=== PATIENT | female | born 1980 | race Caucasian/White ===

== ENCOUNTER → 2017-09-12 | Outpatient (CLI) | payer BC ==
[~2017-09-12] MED LIST: FLUT1SPR5 EACH NARE; LACTCAP8 PO; PREN29TA PO
[2017-09-12 13:56] LABS: BILIRUBIN, URINE NEG (NEG); BLOOD, URINE NEG (NEG); GLUCOSE,URINE NEG (NEG); KETONE, URINE NEG (NEG); NITRITE,URINE NEG (NEG); PH, URINE 6.5 (5.0-8.5); URINE COLOR LIGHT-YELLOW (YELLW/STRAW); URINE LEUKOCYTE ESTERASE NEG (NEG)
[2017-09-12 14:00] LABS: AUTOMATED NEUTROPHIL # 3.5 TH/MM3 (1.8-7.7); BASOPHIL % 0.4 % (0.0-2.0); EOSINOPHIL # 0.2 TH/MM3 (0-0.4); EOSINOPHIL % 2.8 % (0.0-4.0); HEMATOCRIT 41.5 % (35.0-46.0); HEMOGLOBIN 13.9 GM/DL (11.6-15.3); LYMPH % 38.3 % (9.0-44.0); LYMPHOCYTE # 2.6 TH/MM3 (1.0-4.8); MEAN CELL VOLUME 89.4 FL (80.0-100.0); MEAN CORPUSCULAR HGB CONC 33.5 % (32.0-36.0); MEAN PLATELET VOLUME 9.4 FL (7.0-11.0); MONO % 6.4 % (0.0-8.0); MONOCYTE # 0.4 TH/MM3 (0-0.9); NEUT % 52.1 % (16.0-70.0); PLATELET COUNT 284 TH/MM3 (150-450); RED BLOOD COUNT 4.65 MIL/MM3 (4.00-5.30); RED CELL DISTRIBUTION WIDTH 13.3 % (11.6-17.2); WHITE BLOOD COUNT 6.7 TH/MM3 (4.0-11.0)
--- NOTE | 2017-09-13 14:21 | EKG ---
Date Performed: 09/12/2017 Time Performed: 13:04:04 PTAGE: 36 years EKG: SINUS BRADYCARDIA LOW QRS VOLTAGE IN PRECORDIAL LEADS BORDERLINE ECG NO PREVIOUS TRACING DOCTOR: Kodak Bowie Interpretating Date/Time 09/13/2017 14:20:40
== END ==
LOC: CPRE 12:46
PROVIDERS: ATTEND Obstetrics & Gynecology
DX: Z01.812 Encounter for preprocedural laboratory examination (principal); Z01.810 Encounter for preprocedural cardiovascular examination; N92.0 Excessive and frequent menstruation with regular cycle; N94.6 Dysmenorrhea, unspecified; R00.1 Bradycardia, unspecified
CPT/HCPCS: 36415; 81001; 84702; 85025; 93005

== ENCOUNTER → 2017-09-14 | Day surgery (SDC) | payer BC ==
--- NOTE | 2017-09-13 12:11 | MH ---
cc: Sonu Mitchell MD DATE OF ADMISSION: 09/14/2017 ADMITTING DIAGNOSES: 1. Menorrhagia. 2. Dysmenorrhea. HISTORY OF PRESENT ILLNESS: This is a 36-year-old white female, para 1-0-0-1 who returned for evaluation on 07/10/2017 reporting increasing menstrual flow and menstrual pain. Her cycles are lasting from 4-5 days. At first, her menses are heavy often passing large clots per vagina, bleeding through her tampons and clothing. She has had a little more dysmenorrhea. Her Pap smear was normal. Her laboratory studies were normal. Ultrasound showed a uterus that measured 6.9 cm with normal appearing ovaries. She is now admitted for surgical evaluation. PAST SURGICAL HISTORY: T and A, age 31, in 2016 for failure to progress OP and nonreassuring heart rate tracing. MEDICATIONS: Vitamins. ALLERGIES: NONE. TRANSFUSIONS: None. SOCIAL HISTORY: She is , employed at [employer]. Alcohol, tobacco and drugs are none. FAMILY HISTORY: Noncontributory. PHYSICAL EXAMINATION: This is a well-nourished, well-developed white female. VITAL SIGNS: Stable. HEENT: Normal. CHEST: Clear. HEART: Regular rate. BREASTS: Symmetrical. ABDOMEN: Benign. PELVIC: Normal external genitalia and BUS. Vagina is normal. Cervix normal. Uterus is normal size and shape. Adnexa nonpalpable. ASSESSMENT: As above. PLAN: She is now admitted for hysteroscopy and D and C. While in the office, I explained the procedures, the risks, benefits and complications and possible need for later therapies and patient would like to proceed. Sonu Mitchell MD JAW/DL , 11:48 AM , 12:10 PM
[~2017-09-14] VITALS: Ht 160 cm; Wt 68.1 kg
[~2017-09-14] MED LIST changes: +ACETAMINOPHEN 1000 MG/100 ML 100 ML IV SCH; +CHLORHEXIDINE GLUCONATE 2 % 1 PACK (2 CLOTHS) TOPICAL PRN; +DEXAMETHASONE SOD PHOS 4 MG/ML VIAL IV ONE; +DO NOT ADM ANY ANTICOAGULANT DRUGS PRN; +KETOROLAC TROMETHAMINE 30 MG/ML (IVP) VIAL IV PUSH ONE; +LACTATED RINGER'S 1000 ML IV PRN; +LIDOCAINE HCL 1% PF 5 ML SYRINGE OTHER ONE; +METOCLOPRAMIDE HCL 10 MG/2 ML VIAL IV PUSH PRN; +METOPROLOL TARTRATE 25 MG TAB PO PRN; +MIDAZOLAM HCL 2 MG/2 ML VIAL ONE; +ONDANSETRON HCL 4 MG/2 ML VIAL IV ONE; +POVIDONE IODINE 5% (ANTISEPSIS KIT) 4 APPLICATIONS EACH NARE PRN; +PROPOFOL 200 MG/20 ML AMP IV ONE; +SODIUM CHLORID 0.9% 500 ML IV PRN; +ceFAZolin 1,000 MG/NS 100 ML IV SCH
--- NOTE | 2017-09-14 08:14 | MP ---
cc: Sonu Mitchell MD DATE OF OPERATION: 09/14/2017 DATE OF PROCEDURE: 09/14/2017. PREOPERATIVE DIAGNOSES: 1. Menorrhagia. 2. Dysmenorrhea. ANESTHESIA: General LMA. ESTIMATED BLOOD LOSS: Less than 10 mL. FLUIDS: 500 mL crystalloid. OBJECTIVE FINDINGS: Following induction of adequate general LMA anesthesia, the patient was prepped and draped supine on the operating table in dorsal lithotomy position in the usual sterile fashion, with the bladder being drained via in-and-out catheterization. Exam under anesthesia revealed a normal size, shape anterior uterus. No adnexal masses. A weighted speculum was placed in the posterior fornix of the vagina. Anterior lip of the cervix was grasped with a single-tooth tenaculum. Cervix, uterus sounded to 8 cm. Cervix dilated to a #18 Hanks dilator. Hysteroscope was passed, revealed normal cervix and normal endometrium. The scope was now withdrawn. Endocervical curettings obtained with a small serrated curette, endometrium with a small sharp curet. The cervix tenaculum site was now sutured with 3-0 chromic with good hemostasis. All instruments were removed. All counts were correct. The patient was taken out of the [facility]. She was awakened and taken to the recovery room in good condition. MD ROX Savage/KD , 07:52 AM , 08:13 AM
[2017-09-14 09:13] VITALS: BP 102/73; PULSE 46; RESP 14; TEMP 97.6; O2SAT 100
== END | disposition home or self-care (01) ==
LOC: HSDC 05:44
PROVIDERS: ATTEND Obstetrics & Gynecology
DX: N92.0 Excessive and frequent menstruation with regular cycle (principal); N94.6 Dysmenorrhea, unspecified; N84.0 Polyp of corpus uteri; K21.9 Gastro-esophageal reflux disease without esophagitis
CPT/HCPCS: 00952; 58558; 88305; J0131; J0690; J1100; J1885; J2250; J2405; J3010; J7120

== ENCOUNTER 2018-03-01 05:18 | Observation (INO) ==
--- NOTE | 2018-02-28 13:14 | MH ---
cc: Sonu Mitchell MD DATE OF ADMISSION: 03/01/2018 ADMITTING DIAGNOSIS: Menorrhagia and dysmenorrhea. HISTORY OF PRESENT ILLNESS: The patient is a 27-year-old white female, para 1-0-0-1, who returned for evaluation on 07/10/2017 reporting increasing menstrual flow and menstrual pain. Her laboratory studies were normal. Her ultrasound of the pelvis was normal. She underwent a hysteroscopy and D and C on 09/14/2017 with benign findings and failed to improve. She is now admitted for hysterectomy. PAST SURGICAL HISTORY: T and A at age 31, in 2015, D and C and hysteroscopy 08/2017. MEDICATIONS: Vitamins. ALLERGIES: NONE. TRANSFUSIONS: None. OBSTETRIC HISTORY: One term delivery by . SOCIAL HISTORY: She is , employed at . Alcohol, tobacco and drugs are none. FAMILY HISTORY: Noncontributory. REVIEW OF SYSTEMS: Negative. Physical examination: GENERAL: This is a well-nourished, well-developed white female. VITAL SIGNS: Stable. HEENT: Normal. CHEST: Clear. HEART: Regular rate. BREASTS: Symmetrical. ABDOMEN: Benign. PELVIC: Normal external genitalia and BUS. Vagina is normal. Cervix normal. Uterus is normal size, shape, anterior. No adnexal masses. ASSESSMENT AND PLAN: Now admitted for a laparoscopy with a planned LASH procedure with bilateral salpingectomy, possible BSO, possible abdominal hysterectomy and BSO. In the office, the surgical procedure, the risks and benefits and complications were explained and accepted. MD ROX Savage/kevin , 12:46 PM , 12:53 PM
[2018-03-01] MEDS ORDERED: Metoprolol Tartrate 25 MG Tablet PO ONE (05:38)
[2018-03-01] MEDS ORDERED: Chlorhexidine Gluconate 2% 1 Pack (2 Cloths) TOPICAL ONE (05:38)
[2018-03-01] MEDS ORDERED: ceFAZolin 2 GM IV; once IV.SIG SCH (05:45)
[2018-03-01] MEDS ORDERED: Sodium Chlor 0.9% Inj 500 ML IV.SIG SCH (06:00)
[2018-03-01] MEDS ORDERED: Ketorolac Inj 30 MG/ML (IVP) Vial IV.PUSH ONE (06:46)
[2018-03-01] MEDS ORDERED: Ketorolac Inj 30 MG/ML (IVP) Vial IM ONE (06:46)
[2018-03-01] MEDS ORDERED: Neostigmine Inj 5 MG/5 ML Syringe IV.PUSH ONE (06:46)
[2018-03-01] MEDS ORDERED: Glycopyrrolate Inj 1 MG/5 ML Syringe IV.PUSH ONE (06:46)
[2018-03-01] MEDS ORDERED: Bupivacaine Liposomal PF 1.3% Inj 20 ML Vial ONE (06:47)
[2018-03-01] MEDS ORDERED: Bupivacaine PF 0.5% Inj 30 ML Vial ONE (06:48)
[2018-03-01] MEDS ORDERED: Zolpidem Tartrate 5 MG Tablet PO PRN (08:12)
[2018-03-01] MEDS ORDERED: HYDROmorphone PF Inj 1 MG/ML Ampul IV.PUSH PRN (08:12)
[2018-03-01] MEDS ORDERED: Loratadine 10 MG Tablet PO PRN (08:17)
[2018-03-01] MEDS ORDERED: fentaNYL Citrate Inj 100 MCG/2 ML Ampul ONE (08:53)
[2018-03-01] MEDS ORDERED: *Meperidine Inj 25 MG/ML Vial PERIprocedural Use ONLY ONE (09:04)
--- NOTE | 2018-03-01 09:07 | MP ---
cc: Sonu Mitchell MD DATE OF OPERATION: 03/01/2018 PREOPERATIVE DIAGNOSES: 1. Menorrhagia. 2. Dysmenorrhea. POSTOPERATIVE DIAGNOSES: 1. Menorrhagia. 2. Dysmenorrhea. PROCEDURES PERFORMED: Laparoscopically-assisted supracervical hysterectomy. SURGEON: Sonu Mitchell MD. GENERAL PASSENGER AGENT: DUGLAS Zarate. ESTIMATED BLOOD LOSS: 100 mL. FLUIDS: 1.3 liters crystalloid. OBJECTIVE FINDINGS: Following induction of adequate general endotracheal anesthesia, the patient was prepped and draped supine on the operating table in dorsal lithotomy position in usual sterile fashion, with the bladder being drained by Pérez catheterization. The abdomen was opened through a 3 cm curving infraumbilical incision using the knife to cut down through the skin to the fascia. The fascia opened transversely, stripped from the muscles, rectus muscle split in the midline, and the peritoneum opened sharply without incident. The mini GelPort was placed. Laparoscope inserted. A 5 port placed in left lower quadrant and AirSeal in right lower quadrant. Uterus was about 12-week size, globular. Normal tubes, normal ovaries, normal cul-de-sacs, normal liver edge. Working first on the left, Harmonic scalpel was used to take the left mesosalpinx, left round ligament, left broad ligament, left side of bladder flap, and the left uterine vessels. The same on the right. The Harmonic scalpel was now used to amputate the fundus from the cervix. A pouch inserted and used to extract the fundus and tubes intact through the GelPort site. Irrigation was now performed. One area of bleeding on the left side of the cervix was sutured with a 2-0 Vicryl Quill stitch for good hemostasis. Inspection of both ureters revealed good peristalsis. The bladder was filled with saline, checked for leaks, and there were none. Low pressure test with no bleeding. The operative site covered with Evicel. GelPort was now removed. Peritoneum sutured with a running 2-0 Vicryl, the fascia with a running locking stitch with #0 Vicryl corner to midline tied, subcutaneous 3-0 Vicryl, the skin with running subcuticular 3-0 Monocryl. The laparoscope was inserted in the lower ports and used to inspect the GelPort site. It showed good closure with no entrapment of tissue or bleeding. Pelvis inspected. There was no bleeding. The scope was removed, gas was allowed to escape, and the small ports closed with 3-0 Monocryl. Dermabond applied. All counts were correct. The patient now received a TAP block and will go to recovery room. MD ROX Savage/lizzie , 08:24 AM , 08:31 AM
[2018-03-01 13:00] LABS: Hematocrit 38.5 % (35.0-46.0); Mean Corpuscular HGB Conc 33.6 % (32.0-36.0); Mean Corpuscular Hemoglobin 31.3 pg (27.0-34.0); Mean Corpuscular Volume 92.9 fL (80.0-100.0); Platelet Count 215 th/mm3 (150-450); Red Blood Count 4.15 mil/mm3 (4.00-5.30); Red Cell Distribution Width 13.5 % (11.6-17.2); White Blood Count 13.5 th/mm3 (4.0-11.0)
[2018-03-01] MEDS: Ketorolac Inj 30 MG/ML (IVP) Vial IV.PUSH SCH ×3 (15:00→21:13)
[2018-03-01] MEDS: KCL 20 mEq/D5W/NaCl 0.45% Inj 1,000 ML IV.CONT SCH ×2 (17:04→18:04)
[2018-03-01] MEDS: Docusate Sodium 100 MG Capsule PO SCH (21:16)
[2018-03-02] MEDS: KCL 20 mEq/D5W/NaCl 0.45% Inj 1,000 ML IV.CONT SCH (01:51)
[2018-03-02] MEDS: Ketorolac Inj 30 MG/ML (IVP) Vial IV.PUSH SCH ×2 (03:24→09:13)
[2018-03-02 05:55] LABS: Baso % (Auto) 0.1 % (0.0-2.0); Eos % (Auto) 0.3 % (0.0-4.0); Hematocrit 34.6 % (35.0-46.0); Hemoglobin 11.8 gm/dL (11.6-15.3); Lymph # (Auto) 2.1 th/mm3 (1.0-4.8); Lymph % (Auto) 21.5 % (9.0-44.0); Mean Corpuscular Hemoglobin 31.4 pg (27.0-34.0); Mean Corpuscular Volume 92.5 fL (80.0-100.0); Mean Platelet Volume 10.1 fL (7.0-11.0); Mono # (Auto) 0.8 th/mm3 (0.0-0.9); Mono % (Auto) 7.7 % (0.0-8.0); Neut # (Auto) 6.9 th/mm3 (1.8-7.7); Neut % (Auto) 70.4 % (16.0-70.0); Platelet Count 203 th/mm3 (150-450); Red Blood Count 3.74 mil/mm3 (4.00-5.30); Red Cell Distribution Width 13.5 % (11.6-17.2); White Blood Count 9.8 th/mm3 (4.0-11.0)
[2018-03-02 06:20] LABS: Anion Gap 9 meq/L (5-15); Blood Urea Nitrogen 5 mg/dL (7-18); Calcium 8.3 mg/dL (8.5-10.1); Carbon Dioxide 22.3 meq/L (21.0-32.0); Chloride 110 meq/L (98-107); Glomerular Filtration Rate Greater Than 89 mL/min (>89); Glucose,Random 123 mg/dL (74-106); Potassium 3.9 meq/L (3.5-5.1); Sodium 141 meq/L (136-145)
[2018-03-02 08:57] VITALS: BP 105/64; PULSE 67; RESP 20; TEMP 98.2; O2SAT 95
[2018-03-02] MEDS: Docusate Sodium 100 MG Capsule PO SCH (09:13)
== END 2018-03-02 10:55 | disposition home or self-care (01) ==
LOC: HSDC 05:18 → H1EA 05:18
PROVIDERS: ADMIT Obstetrics & Gynecology; ATTEND Obstetrics & Gynecology
PROC: LAPLASH (ICD-10-PCS; 2018-03-01 06:46)